=== PATIENT | female | born 1950 | race Caucasian/White ===

== ENCOUNTER → 2024-01-19 14:48 | Outpatient (REF) | payer OTHER, SELFPAY | LOC: HWRAD 14:48 | PROVIDERS: ATTENDING PHYSICIAN Internal Medicine | DX: M85.80 Other specified disorders of bone density and structure, unspecified site (principal); Z12.39 Encounter for other screening for malignant neoplasm of breast | CPT/HCPCS: 77063; 77067; 77080 ==

== ENCOUNTER → 2024-01-21 11:46 | Outpatient (REF) | payer OTHER, SELFPAY | LOC: DHCBC/DCA 11:46 | PROVIDERS: ATTENDING PHYSICIAN Internal Medicine | DX: Z85.3 Personal history of malignant neoplasm of breast (principal) | CPT/HCPCS: 78452; 93017; A9500 ==

== ENCOUNTER → 2024-01-29 08:58 | Outpatient (REF) | payer OTHER, SELFPAY | LOC: RCS 08:58 | PROVIDERS: ATTENDING PHYSICIAN Internal Medicine | DX: Z85.3 Personal history of malignant neoplasm of breast (principal); R06.09 Other forms of dyspnea | CPT/HCPCS: 93306 ==

== ENCOUNTER → 2025-03-21 12:31 | Outpatient (REF) | payer OTHER, SELFPAY | LOC: HWWDC 12:31 | PROVIDERS: ATTENDING PHYSICIAN Internal Medicine | DX: Z12.31 Encounter for screening mammogram for malignant neoplasm of breast (principal) | CPT/HCPCS: 77063; 77067 ==